=== PATIENT | female | born 1930 | race Caucasian/White ===

== ENCOUNTER 2017-06-02 16:55 | Emergency (ER) | payer OTHER, MEDICARE ==
[~2017-06-02] VITALS: Ht 154.9 cm; Wt 45.0 kg
[~2017-06-02 16:55] MED LIST: ALPR-138 PO; DIFL200T PO; LEVO.1 PO; LEXA10TA PO; OXYC-360 PO; OYST500T77 PO; PREM0.622 PO; ROSU5 PO; ZOFR8TAB PO; [UNRECOGNIZED DRUG - OTHER] PO
[2017-06-02 17:00] VITALS: BP 206/84; PULSE 71; RESP 16; TEMP 98.2; O2SAT 98
[2017-06-02] MEDS ORDERED: FLUO-1 PO (17:34)
[2017-06-02] MEDS ORDERED: ESTR.625 PO (17:34)
[2017-06-02] MEDS ORDERED: LEVO.1 PO (17:34)
[2017-06-02] MEDS ORDERED: OMEGCAP PO (17:35)
--- NOTE | 2017-06-02 18:01 | PD ---
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 Only complaint is of right thumb swelling but she states she did hit her head and has mild bruise on her head. She is not on any blood thinners, appears younger than stated age. No chest pain or shortness of breath no abdominal pain no other extremity pain. 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) Cardiovascular Problems: No High Cholesterol: Yes (SLIGHT) Chemotherapy: Yes Chest Pain: No Congestive Heart Failure: No COPD: No Cerebrovascular Accident: No Diabetes: No Diminished Hearing: No Endocrine: Yes GERD: No Glaucoma: No Genitourinary: No Headaches: No Hepatitis: No Hiatal Hernia: No Hypertension: Yes Immune Disorder: No Musculoskeletal: Yes Neurologic: No Psychiatric: No Reproductive: No Respiratory: No Migraines: No Myocardial Infarction: No Radiation Therapy: No Renal Failure: No Seizures: No Sickle Cell Disease: No Sleep Apnea: No Thyroid Disease: Yes Ulcer: No Tetanus Vaccination: < 5 Years Influenza Vaccination: Yes ?: Not Past Surgical History Abdominal Surgery: Yes (RECTO SIGMOID RESECTION/SPLENECTOMY removal of cancer 2007) AICD: No Appendectomy: No Arteriovenous Shunt: No Cardiac Surgery: No Cholecystectomy: No Ear Surgery: No Endocrine Surgery: No Eye Surgery: No Genitourinary Surgery: Yes (URETERO LITHIASIS) Gynecologic Surgery: Yes (HYSTERECTOMY) Hysterectomy: Yes (with ovaries removed) Insulin Pump: No Joint Replacement: No Oral Surgery: No Pacemaker: No Thoracic Surgery: No Other Surgery: Yes (sleenectomy) Social History Alcohol Use: No Tobacco Use: No Substance Use: No Allergies-Medications (Allergen,Severity, Reaction): Coded Allergies: No Known Allergies (Verified Adverse Reaction, Unknown, 06/02/17) Reported Meds & Prescriptions Reported Meds & Active Scripts Active Reported [place]-3 Fish Oil/Vitamin (Fish Oil-Cholecalciferol) 1,000-1,000 Mg Cap 1 Cap PO DAILY Synthroid (Levothyroxine Sodium) 100 Mcg Tab 100 Mcg PO DAILY Premarin (Estrogens Conjugated) 0.625 Mg Tab 0.625 Mg PO DAILY Prozac (Fluoxetine HCl) 10 Mg Cap 10 Mg PO DIRECTED Review of Systems Except as stated in HPI: all other systems reviewed are Neg Physical Exam Narrative GENERAL: Well-developed well-nourished in no obvious distress, quite pleasant, laughing and joking with staff. SKIN: Focused skin assessment warm/dry. HEAD: No mcclure signs no raccoon's eyes, there is a small ecchymosis on the left forehead.. Normocephalic. EYES: Pupils equal and round. No scleral icterus. No injection or drainage. ENT: No nasal bleeding or discharge. Mucous membranes pink and moist. NECK: Trachea midline. No JVD. CARDIOVASCULAR: Regular rate and rhythm. No murmur appreciated. RESPIRATORY: No accessory muscle use. Clear to auscultation. Breath sounds equal bilaterally. GASTROINTESTINAL: Abdomen soft, non-tender, nondistended. Hepatic and splenic margins not palpable. MUSCULOSKELETAL: No obvious deformities. No clubbing. No cyanosis. No edema. There is perhaps a minimal amount of swelling over the interphalangeal joint of the right thumb, she is full nontender range of motion, extremities otherwise have no gross deformity, there are 2 small scabs on the patient's mata on the left side. No bony tenderness on any extremity. No midline CT or L-spine tenderness NEUROLOGICAL: Awake and alert. No obvious cranial nerve deficits. Motor grossly within normal limits. Normal speech. PSYCHIATRIC: Appropriate mood and affect; insight and judgment normal. Data Data Last Documented VS Vital Signs Date Time Temp Pulse Resp B/P (MAP) Pulse Ox O2 Delivery O2 Flow Rate FiO2 06/02/17 19:43 84 18 97 06/02/17 19:39 Room Air 06/02/17 17:[address] Brain W/O Iv Contrast(Rout) (06/02/17 ) Hand, Complete ([id number]) (06/02/17 ) Ed Discharge Order (06/02/17 19:04) MDM Medical Decision Making Medical Screen Exam Complete: Yes Emergency Medical Condition: Yes Differential Diagnosis Fall, thumb injury, thumb fracture, thumb strength, thumb sprain, head injury, neck injury Narrative Course Last [address] 06/02/17 0000 Signed Impressions: Service Date/Time: May 18:58 - CONCLUSION: No acute intracranial abnormality. Feroz Abernathy MD Hand X-Ray 06/02/17 0000 Signed Impressions: Service Date/Time: May 18:11 - CONCLUSION: Intact right hand. 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 Feroz Abernathy MD Discussed symptomatic management return to the criteria. Stable for discharge Diagnosis Primary Impression: Thumb pain Additional Impressions: Fall Head injury, closed Disposition: DISCHARGE HOME Condition: Stable Nav Bonilla MD Jun 02, 2017 18:01
--- NOTE | 2017-06-02 18:27 | RADRPT ---
EXAM DATE/TIME: 06/02/2017 18:11 [facility] COMPARISON: No previous studies available for comparison. INDICATIONS : Swelling and limited range of motion in first digit after injury today. MEDICAL HISTORY : None. SURGICAL HISTORY : None. ENCOUNTER: Initial ACUITY: 1 day PAIN SCORE: 0/10 LOCATION: Right thumb FINDINGS: There is moderate osteoarthritis of the interphalangeal joint of the thumb but I don't see a fracture or subluxation. Soft tissues are within normal limits. No radiopaque foreign body. CONCLUSION: Intact right hand. 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 Feroz Abernathy MD on June 02, 2017 at 18:24 Board Certified Radiologist. This report was verified electronically.
--- NOTE | 2017-06-02 19:10 | RADRPT ---
EXAM DATE/TIME: 06/02/2017 18:58 [facility] COMPARISON: No previous studies available for comparison. INDICATIONS : Trauma; fall. RADIATION DOSE: 55.46 CTDIvol (mGy) MEDICAL HISTORY : None SURGICAL HISTORY : None. ENCOUNTER: Initial ACUITY: 1 day PAIN SCALE: 6/10 LOCATION: cranial TECHNIQUE: Multiple contiguous axial images were obtained of the head. Using automated exposure control and adj ustment of the mA and/or kV according to patient size, radiation dose was kept as low as reasonably a chievable to obtain optimal diagnostic quality images. DICOM format image data is available electro nically for review and comparison. FINDINGS: CEREBRUM: The ventricles are normal for age. No evidence of midline shift, mass lesion, hemorrhage or acute in farction. No extra-axial fluid collections are seen. POSTERIOR FOSSA: The cerebellum and brainstem are intact. The 4th ventricle is midline. The cerebellopontine angle i s unremarkable. EXTRACRANIAL: The visualized portion of the orbits is intact. SKULL: The calvaria is intact. No evidence of skull fracture. CONCLUSION: No acute intracranial abnormality. Feroz Abernathy MD on June 02, 2017 at 19:08 Board Certified Radiologist. This report was verified electronically.
[2017-06-02 19:39] VITALS: BP 156/76; PULSE 82; RESP 18; O2SAT 97
== END 2017-06-02 19:45 | disposition home or self-care (01) ==
LOC: PHED 16:55
DX: M79.644 Pain in right finger(s) (principal); S09.90XA Unspecified injury of head, initial encounter; E78.00 Pure hypercholesterolemia, unspecified; I10 Essential (primary) hypertension; Z85.43 Personal history of malignant neoplasm of ovary; Z85.038 Personal history of other malignant neoplasm of large intestine; Z85.89 Personal history of malignant neoplasm of other organs and systems; W01.0XXA Fall on same level from slipping, tripping and stumbling without subsequent striking against object, initial encounter
CPT/HCPCS: 70450; 73130; 99284